=== PATIENT | female | born 1975 | race Caucasian/White ===

== ENCOUNTER → 2020-06-10 16:36 | Outpatient (BNVA) | payer OTHER, SELFPAY | PROVIDERS: Family Provider Family Medicine; PCP Registered Nurse; Referring Provider Nurse Practitioner Family; Visit Provider Internal Medicine | DX: R53.83 Other fatigue (principal); D59.9 Acquired hemolytic anemia, unspecified | CPT/HCPCS: 82607; 82746; 83550; 83615; 84443; 85025; 85651; 86140 ==

== ENCOUNTER 2020-07-15 12:39 | Outpatient (CLI) | payer OTHER, SELFPAY ==
[2020-07-15 15:10] LABS: Basophils # 0.1 10^3/uL (0.0-0.1); Basophils % 0.9 %; Eosinophils # 0.3 10^3/uL (0.0-0.8); Eosinophils % 3.4 %; Hematocrit 42.5 % (37.0-47.0); Hemoglobin 13.8 g/dL (11.5-15.3); Lymphocytes # 1.8 10^3/uL (0.8-4.8); Lymphocytes % 23.4 %; Mean Corpuscular HGB Conc 32.5 g/dL (30.0-36.0); Mean Corpuscular Hemoglobin 28.9 pg (28.0-34.0); Mean Corpuscular Volume 89.1 fL (81-99); Mean Platelet Volume 10.8 fL (7.4-10.4); Monocytes # 0.4 10^3/uL (0.2-0.9); Monocytes % 5.7 %; Neutrophils # 5.14 10^3/uL (1.8-7.7); Neutrophils % 66.2 %; Nucleated Red Blood Cells % 0 %; Platelet Count 296 10^3/cmm (130-400); Red Blood Count 4.77 10^6/uL (4.1-5.3); Red Cell Distribution Width 12.3 % (12.1-15.1); White Blood Count 7.8 10^3/uL (4.0-10.0)
[2020-07-15 15:29] LABS: Alanine Aminotransferase 9 U/L (0-33); Albumin Level 4.4 g/dL (3.5-5.2); Alkaline Phosphatase 65 IU/L (35-105); Anion Gap 15.1 (5-19); Aspartate Amino Transferase 13 U/L (0-32); Blood Urea Nitrogen 15 mg/dL (6-20); C Reactive Protein 1.4 mg/L (0.0-4.9); Calcium 9.2 mg/dL (8.5-10.5); Carbon Dioxide 25 mmol/L (22-29); Chloride 104 mmol/L (98-107); Ferritin 31 ng/mL (15-150); Globulin 2.5 g/dL (1.3-4.6); Glomerular Filtration Rate 91.3 mL/min (90-130); Glucose 91 mg/dL (65-115); Iron 87 ug/dL (37-145); Lactate Dehydrogenase 208 U/L (135-214); Osmolality Calculated 290 mOsm/kg (285-295); Percent Saturation 25.8 % (20-50); Potassium 4.1 mmol/L (3.5-5.1); Sodium 140 mmol/L (136-145); Total Bilirubin 0.4 mg/dL (0.15-1.2); Total Iron Binding Capacity 337 mcg/dl; Total Protein 6.9 g/dL (6.6-8.7); Unsaturated Iron Binding 250 ug/dL (112-347); Uric Acid 1.6 mg/dL (2.4-5.7)
[2020-07-15 15:54] LABS: Erythrocyte Sedimentation Rate 11 mm/hr (0-15)
--- NOTE | 2020-07-15 18:53 | ONC CON_ITS ---
Dr. Rausch New Patient Note Patient: Shae Cheung Unit #: [id number]: 1975 Dicatated By: Harlan Rausch M.D.Date of Visit: Jul 15, 2020 Onc MED New Patient/Consult Referring Physician: Dr. Donaldo Adkins M.D. Chief Complaint: Anemia. 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 She had presented in 2019 with abdominal pain and splenomegaly. On her initial hematology consultation in July 2018 she was just mildly anemic with hemoglobin 11.8 g. She had mild neutropenia, ANC 1500. LDH was mildly elevated at 342 and her haptoglobin was less than 10, consistent with hemolysis. Her whole blood flow cytometry was unrevealing. 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 CINTIA and RA titers were negative. She was initially followed expectantly. Her bone marrow aspiration/biopsy on 01/04/2019 showed reduced iron stores, but it was otherwise unremarkable. Her PET/CT on 03/03/2019 showed an FDG avid right adrenal nodule measuring 0.6 cm, SUV 4.37. The spleen was noted to be enlarged measuring 26 cm with generalized increased metabolic activity, maximum SUV 4.21. There were no focal defects noted. Left adnexal activity was felt to likely reflect luteal phase of the menstrual cycle. There were no other areas of abnormal activity. As of March 2019 her hemoglobin had dropped to 8.2 g with white blood cell count 3700 and platelet count 208,000. She had been seen by Dr. Gomez at [facility], and she then began on steroid therapy. I cannot find in the available records where there is any mention of her direct antibody test, but she did have a diagnosis of autoimmune hemolytic anemia and she did show response to prednisone with her hemoglobin increased to 12.7 g in April 2019. As of June 2019 her hemoglobin decreased to 10.2 g with her prednisone dosage tapered to 10 mg daily. She did show some response to higher dose steroid therapy, but during that time she did get approved for a trial of therapy with rituximab. She then completed a standard [id number] of rituximab from 07/24/2019 through 08/14/2019. She experienced some infusion reaction with the initial infusion, but it was managed with the medication and she completed the rest of her treatment with no further complications. She had a very good clinical response with normalization of the hemoglobin/hematocrit levels and a significant decrease in the splenomegaly. During her further follow-up, though, she continued to complain of fatigue, left lower chest/left upper quadrant abdominal discomfort, and generalized musculoskeletal pain. She had a follow-up visit with Dr. Adkins on 06/10/2020. Her CBC at that time showed normal hemoglobin 14.2 g with hematocrit 43.6%. The red cell indices were normal. The white blood cell count was 7500 with a differential showing 64% neutrophils, 24% lymphocytes, 6% monocytes, and 3% eosinophils. Platelet count was normal at 321,000. Her serum iron studies showed slightly low transferrin saturation at 17.8%. B12 was normal at 740 pg/mL. LDH was normal at 180 6U/L. The TSH was normal at 0.95 ???IU/mL and the C-reactive protein was normal at 3.3 mg/L. She says she has pretty good energy now. She still has some fatigue, but not as much. She mainly feels tired and achy before her menstrual periods. Her ECOG score is 1. Her appetite has been down somewhat since the rituximab treatment. She did have a significant weight gain while on prednisone. Her weight recently has dropped about 6 pounds, but she still up at least 30 pounds from baseline. She does not have fever, night sweats, or hot flashes. She did have some change in vision, that seems to be getting better. She has chronic sinus drainage. She does not complain of shortness of breath, cough, or chest pain. She sometimes has nausea. She still complains of having some pressure-like discomfort in the lower chest/upper abdomen on the left side. She was having diarrhea, that has resolved. Bladder function has been okay. She continues to have musculoskeletal pain described as an ache. It is mainly in the neck/shoulders and legs. It is not as bad now as it had been. She has headaches with her menstrual periods. She does not complain of dizziness. Since the steroid therapy she has had intermittent numbness on the left side of her face. She also sometimes has numbness in her arms and legs when she first wakes up in the morning. She reports having anxiety, but not depression. Past Medical History: Her medical history includes allergic rhinitis and hemolytic anemia in 2019. Past Surgical History: Her surgical/procedural history includes EGD on 06/10/2018 and bone marrow aspiration/biopsy on 01/04/2019. Medications: Advil 2 (200 mg) Capsule Oral PRN, Rose Allergy 1 (180 mg) Tablet Oral daily, Benadryl Allergy 2 (25 mg) Capsule Oral at bedtime, DULoxetine HCl 1 (30 mg) Capsule Delayed Release Particles Oral daily Allergies: Sulfa Antibiotics Social History: Ms. Cheung is . She has history of smoking 1/2 pack of cigarettes daily. She quit 23 years ago. She still vapes. She does not drink alcohol. Family History: Father with cancer at age 87, she thinks lung cancer. Mother still living at age 72. She has dementia and schizophrenia. She has 4 half siblings including 2 brothers and 2 sisters. One brother in motor vehicle accident and a sister from cancer, type unknown to the patient. Review Of Symptoms: Constitutional - She has generally been feeling better since the Rituxan. Her energy level has increased and her fatigued has improved. She is able to do light housework. Her appetite is not as good, but her weight is up from her average of 160 pounds. No fever, night sweats, or hot flashes. ECOG score is 1, Eyes - She reports a decrease in vision, ENMT - She has chronic sinus congestion/drainage. No mouth sores. No sore throat or difficulty swallowing, Hematologic/Lymphatic - No abnormal bruising or bleeding, Respiratory - No shortness of breath. No cough. No pleuritic pain or hemoptysis, Cardiovascular - No angina pain. No palpitations, Gastrointestinal - No nausea or vomiting. No heartburn or acid reflux. She was having frequent loose stools, this has improved. No constipation. No blood in the stool or black stools. She continues to have a fullness feeling in her left upper quadrant, Genitourinary (F) - No dysuria or hematuria. No urinary frequency. No urgency or incontinence, Musculoskeletal - She has generalized joint aches, mainly to her neck/shoulders and legs, Integumentary - No skin eruption, Neurologic - She has consistent headaches during her menstrual cycle. No dizziness. She has intermittent numbness to the left side of her face, first noticed after starting steroids. No other focal neurologic symptoms, Psychiatric - She has anxiety. No depression. No insomnia. Vital Signs: Performed on Jul 15, 2020 13:45: 0, 2, 30.23 (HIGH), 1.99 sq.m, 67 in, 97 %, 85 /min, 18 /min, 132/83 mm(hg), 98.3 F (LOW), and 193 lbs (HIGH). Physical Examination: Constitutional - She appears to be in good general health, Eyes - Sclerae nonicteric. Conjunctivae clear, ENMT - No lesions noted in the oral cavity, Neck - No mass or thyromegaly, Hematologic/Lymphatic - No cervical, clavicular, or axillary adenopathy, Respiratory - Lungs are clear with good air movement bilaterally, Cardiovascular - Heart rhythm is regular. There is no murmur, gallop, or rub noted, Abdomen - Soft and non-tender. Liver is not enlarged. I am not able to palpate the spleen. There is no abdominal mass or ascites noted and there is no inguinal adenopathy, Back/Spine - No spine or CVA tenderness noted, Extremities - No edema. Pedal pulses are palpable bilaterally, Integumentary - No rashes. No suspicious skin lesions noted, Neurologic - No focal neurologic deficits noted. Problem List: 1. Acquired hemolytic anemia, presumed autoimmune. 2. She has chronic fatigue and musculoskeletal pain. 3. Allergic rhinitis. 4. She has some chronic anxiety. Problems Addressed with this Encounter and Plan: 1. Patient with acquired hemolytic anemia, presumed autoimmune, initially diagnosed in June 2018. She had response to steroid therapy with prednisone, initiated in March 2020, but she had a relapse with her prednisone dosage tapered to 10 mg. She then completed a 4-week course of rituximab from 07/24/2019 through 08/14/2019. She has had a very good clinical response with normalization of hemoglobin/hematocrit levels and with improvement in splenomegaly. In the absence of any evidence of ongoing hemolysis and/or recurrence of anemia, she will just be followed expectantly. I will be rechecking her laboratory studies today to include CBC, comprehensive metabolic profile, reticulocyte count, LDH level, and haptoglobin level. I also will check a LUDA. I will tentatively plan a 3-month interval follow-up visit. 2. She has chronic fatigue and chronic musculoskeletal pain. The cause is uncertain, as she has not had evidence for any other associated autoimmune disease. She did have reduced iron stores in her bone marrow and her recent transferrin saturation was a little low, so that iron deficiency could be contributing factor. At this point I will recheck her serum iron studies and ferritin along with sed rate, CRP, RA titer, and CINTIA screen. She will have further evaluation as indicated. Signed By: Harlan Rausch M.D. <<Signature on File>>
[2020-07-16 13:08] LABS: Cyclic Citrullinated Peptide <16 UNITS
[2020-07-16 13:38] LABS: Anti-Nuclear Antibody Screen NEGATIVE (NEGATIVE)
== END 2020-07-15 12:40 | disposition home or self-care (01) ==
LOC: ONCMED 12:44
PROVIDERS: PCP Internal Medicine; Visit Provider Internal Medicine Medical Oncology
DX: D59.9 Acquired hemolytic anemia, unspecified (principal); R53.82 Chronic fatigue, unspecified; M79.10 Myalgia, unspecified site; M25.50 Pain in unspecified joint; J30.9 Allergic rhinitis, unspecified; F41.9 Anxiety disorder, unspecified
CPT/HCPCS: 80053; 82728; 83010; 83540; 83550; 83615; 84550; 85025; 85045; 85651; 86038; 86140; 86431; 86880; 99204

== ENCOUNTER → 2020-08-27 14:30 | Outpatient (BNVA) | payer OTHER, SELFPAY | PROVIDERS: PCP Internal Medicine; Visit Provider Obstetrics & Gynecology | DX: Z01.419 Encounter for gynecological examination (general) (routine) without abnormal findings (principal); Z12.39 Encounter for other screening for malignant neoplasm of breast; O24.919 Unspecified diabetes mellitus in pregnancy, unspecified trimester | CPT/HCPCS: 83001; 83036; 84443; 88175 ==

== ENCOUNTER → 2023-07-06 08:54 | Outpatient (BNVA) | payer BC, SELFPAY | PROVIDERS: PCP Internal Medicine; Visit Provider Family Medicine Adult Medicine | DX: R53.82 Chronic fatigue, unspecified (principal); Z86.2 Personal history of diseases of the blood and blood-forming organs and certain disorders involving the immune mechanism; K52.9 Noninfective gastroenteritis and colitis, unspecified; H72.92 Unspecified perforation of tympanic membrane, left ear | CPT/HCPCS: 80053; 80061; 85025 ==

== ENCOUNTER → 2024-04-25 15:37 | Outpatient (BNVA) | payer BC, SELFPAY | PROVIDERS: PCP Internal Medicine; Visit Provider Nurse Practitioner Women's Health | DX: Z01.419 Encounter for gynecological examination (general) (routine) without abnormal findings (principal) | CPT/HCPCS: 82306; 82465; 82670; 83001; 83002; 83036; 83718; 83721; 84443; 85025 ==

== ENCOUNTER 2024-05-04 09:20 | Outpatient (CLI) | payer BC, SELFPAY ==
--- NOTE | 2024-05-04 09:20 | MM_ITS ---
WS: [id number] BILATERAL SCREENING DIGITAL TOMOSYNTHESIS MAMMOGRAM WITH CAD HISTORY: Z12.39 - Encounter for other screening for malignant neop... COMPARISON: None available. Bilateral CC and MLO views with tomosynthesis and synthetic mammography submitted. Computer aided det ection analyzed. Breast composition: The breasts are heterogeneously dense, which may obscure small masses. No suspici ous masses, microcalcifications or architectural distortion. Benign calcifications LEFT breast. MM/MM scr BI tomosynthesis [id number] IMPRESSION: BI-RADS: 2 - Benign FOLLOW UP: 1 Year Follow-up
== END 2024-05-04 09:21 | disposition home or self-care (01) ==
LOC: MOBLMAM 09:21
PROVIDERS: PCP Nurse Practitioner Women's Health; Visit Provider Nurse Practitioner Women's Health
DX: Z12.31 Encounter for screening mammogram for malignant neoplasm of breast (principal); R92.333 Mammographic heterogeneous density, bilateral breasts; R92.1 Mammographic calcification found on diagnostic imaging of breast
CPT/HCPCS: 77063; 77067

== ENCOUNTER → 2025-04-30 08:56 | Outpatient (BNVA) | payer BC, SELFPAY | PROVIDERS: PCP Family Medicine; Visit Provider Family Medicine | DX: Z00.00 Encounter for general adult medical examination without abnormal findings (principal) | CPT/HCPCS: 80053; 80061; 84443; 85025 ==